=== PATIENT | female | born 1950 | race Caucasian/White ===

== ENCOUNTER → 2024-03-22 | Outpatient (CLI) | payer MEDICARE, BC, SELFPAY ==
--- NOTE | 2024-03-22 13:15 | MRI_ITS ---
INDICATION: POST LAMINECTOMY SYNDROME EXAMINATION: MRI - MR Spine Lumbar W/O Contrast TECHNIQUE: Multiplanar and multisequence MR images of the lumbar spine. IV Contrast Dosage and Agent: None. COMPARISON: None. FINDINGS: VERTEBRAE: Vertebral body heights are preserved. Normal vertebral bodies and posterior elements. VERTEBRAL ALIGNMENT: No spondylolisthesis. There is preservation of the normal lumbar lordosis. CORD: Normal position and signal intensity of the conus medullaris. Multilevel spondylosis. Decreased disc height and small circumferential disc bulge. Degenerative changes of the bilateral facet joints resulting in bilateral neuroforaminal narrowing as described below: T12/L1, L1/L2, L2/L3: Mild narrowing of the bilateral neuroforamina. L3/L4, L4/L5: Bilateral laminectomy and fusion in good alignment. There is no significant stenosis of the spinal canal, lateral recesses or neuroforamina. L5/S1: Mild narrowing of the bilateral neuroforamina. SOFT TISSUES: Unremarkable. MRI/Spine Lumbar (Routine) IMPRESSION: Multilevel degenerative changes as described above. Electronically Signed: Keanu Collier MD at 0:03 EDT ,
== END | disposition home or self-care (01) ==
PROVIDERS: Referring Provider Anesthesiology; Visit Provider Anesthesiology
DX: M96.1 Postlaminectomy syndrome, not elsewhere classified (principal)
CPT/HCPCS: 72148